=== PATIENT | male | born 1970 | race Caucasian/White ===

== ENCOUNTER 2019-04-09 03:39 | Emergency (ER) | payer BC ==
[~2019-04-09] VITALS: Ht 172.7 cm; Wt 88.5 kg
--- NOTE | 2019-04-09 03:50 | NUR ---
ED Nurse Note: pt presents to ED with a laceration to the back R side of his head. pt states that he was climbing something and hit his head on glass 5 min [employer]. pt denies LOC from the injury or any, dizziness or lightheadedness before the injury. pt reports putting abx ointment on the wound. upon inspection, there are 2 lacs. one is approximately 3 cm in length with one additional 1 cm lac horizontally there are small shards of glass noted in the hair around the lacerations.
[2019-04-09 03:55] VITALS: BP 124/80
--- NOTE | 2019-04-09 03:58 | NUR ---
ED Nurse Note: ERMD at bedside with staple procedure. 9 jil were applied on the anterior aspect of the head. Patient tolerated procedure well. Applied dry dressing on the head.
--- NOTE | 2019-04-09 03:59 | NUR ---
ED Nurse Note: Patient is refusing pain medication.
[2019-04-09] MEDS ORDERED: IBUPROFEN600 MG ORAL (04:12)
--- NOTE | 2019-04-09 04:12 | Emergency Room Report ---
History of Present Illness General Chief Complaint: Laceration Source: Patient Present Illness [facility] This a 48-year-old male with no past medical history. He presents with chief complaint of head laceration injury. He said he try to climb over gait and fell and hit his head against the lamp. The glass part of the lamp cut his scalp. This occurred at home. Did not pass out. No other injury. Pain to that area. Pain is 7 out of 10. No nausea no vomiting. No fever chills. No focal deficit. Tetanus is not up-to-date but he does not want a tetanus shot. Allergies: Coded Allergies: No Known Allergies (Unverified , 04/09/19) Patient History Past Medical History: see triage record, old chart reviewed Past Surgical History: none Pertinent Family History: none Social History: Denies: smoking Immunizations: other Reviewed Nursing Documentation: PMH: Agreed; PSxH: Agreed Nursing Documentation-PMH Hx Seizures: Yes Review of Systems Eye: Denies: eye pain, blurred vision ENT: Denies: ear pain, nose congestion, throat swelling Respiratory: Denies: cough, shortness of breath Cardiovascular: Denies: chest pain, palpitations Gastrointestinal: Denies: abdominal pain, diarrhea, nausea, vomiting Musculoskeletal: Denies: back pain, joint pain Skin: Denies: rash Neurological: Denies: headache, numbness Endocrine: Denies: increased thirst, increased urine Hematologic/Lymphatic: Denies: easy bruising All Other Systems: negative except mentioned in HPI Physical Exam Vital Signs Date Time Temp Pulse Resp B/P (MAP) Pulse Ox O2 Delivery O2 Flow Rate FiO2 04/09/19 03:47 97.5 80 16 124/80 (95) 98 Room Air Vitals normal Sp02 EP Interpretation: reviewed, normal General Appearance: well appearing, no apparent distress, alert Head: normocephalic, other - On the back of his head there is a 6 cm laceration. No foreign body. Eyes: bilateral eye PERRL, bilateral eye EOMI ENT: hearing grossly normal, normal pharynx Neck: full range of motion, supple, no meningismus Respiratory: chest non-tender, lungs clear, normal breath sounds Cardiovascular #1: regular rate, rhythm, no murmur Gastrointestinal: normal bowel sounds, non tender, no mass, no organomegaly, no bruit, non-distended Musculoskeletal: back normal, normal range of motion, gait/station normal Psychiatric: mood/affect normal Procedures Laceration/Wound Repair Laceration/Wound Repair : Consent: Verbal Wound Location: head Wound's Depth, Shape: into muscle, linear Wound Length (cm): 6 Wound Explored: clean Irrigated w/ Saline (ccs): 1000 Patient Tolerated: Well Complications: None Progress I placed 9 jil. Patient tolerated surgery without any problem. Medical Decision Making Diagnostic Impression: Primary Impression: Laceration Additional Impression: Head injury Qualified Codes: S09.90XA - Unspecified injury of head, initial encounter ER Course Patient presents with head injury and scalp laceration. He walks without any problem. Patient does not want CAT scan or tetanus shot. On exam I see no foreign body. His history is a little suspicious. Is very clean and straight and deep. Will discharge home. Last Vital Signs Date Time Temp Pulse Resp B/P (MAP) Pulse Ox O2 Delivery O2 Flow Rate FiO2 04/09/19 03:55 97.5 84 16 124/80 98 Room Air Status: improved Disposition: HOME, SELF-CARE Condition: Stable Scripts Ibuprofen* (MOTRIN*) 600 Mg Tablet 600 MG ORAL THREE TIMES A DAY, #30 TAB 0 Refills Prov: Ky Hays MD 04/09/19 Referrals: NOT CHOSEN IPA/MD,REFERRING (PCP) Patient Instructions: Laceration Care, Adult Additional Instructions: Follow up with your doctor in 7 days. Jil out in 7 days. Return if worse. Ky Hays MD Apr 09, 2019 04:12
[2019-04-09] MEDS ORDERED: HYDROcodone/Acetamin 5/325 tab ORAL ONE (04:15)
[2019-04-09 04:18] VITALS: BP 121/86
--- NOTE | 2019-04-09 04:18 | NUR ---
ER DISCHARGE NOTE: Patient is cleared to be discharged per ERMD, pt is aox4, on room air, with stable vital signs. pt was given dc and prescription instructions, pt was able to verbalize understanding, pt id band removed without complications. pt is able to ambulate with steady gait. pt took all belongings.
== END 2019-04-09 04:18 | disposition home or self-care (01) ==
LOC: EMR 04:00
DX: S01.01XA Laceration without foreign body of scalp, initial encounter (principal); W17.89XA Other fall from one level to another, initial encounter; Y93.89 Activity, other specified; Y92.017 Garden or yard in single-family (private) house as the place of occurrence of the external cause; G40.909 Epilepsy, unspecified, not intractable, without status epilepticus
CPT/HCPCS: 99282